=== PATIENT | male | born 1975 | race African-American/Black ===

== ENCOUNTER → 2016-10-21 | Emergency (ER) | payer SELFPAY ==
[2016-10-21 18:05] VITALS: BP 146/84
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
--- NOTE | 2016-10-22 07:46 | EKG ---
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
== END | disposition home or self-care (01) ==
LOC: ER 17:38
DX: R07.89 Other chest pain (principal); I10 Essential (primary) hypertension; F17.210 Nicotine dependence, cigarettes, uncomplicated; F10.10 Alcohol abuse, uncomplicated; F16.10 Hallucinogen abuse, uncomplicated
CPT/HCPCS: 93005; 99283-25